=== PATIENT | female | born 1985 | race Caucasian/White ===

== ENCOUNTER 2024-09-01 09:05 | Emergency (ER) | payer BC ==
[2024-09-01] MEDS ORDERED: Phenytoin Extended Release 100 MG CAP ONE (09:48)
[2024-09-01 10:03] LABS: #Basophils 0.05 10x3/uL (0.0-0.2); #Monocytes 0.39 10x3/uL (0.0-1.1); #Neutrophils 3.62 10x3/uL (1.5-8.4); %Basophils 0.8 % (0.0-2.0); %Eosinophils 6.2 % (0.0-6.0); %Lymphocytes 30.6 % (18.0-47.0); %Monocytes 6.1 % (0.0-10.0); %Neutrophils 56.1 % (40.0-75.0); Hematocrit 32.1 % (34.9-44.5); Hemoglobin 10.4 g/dL (12.0-15.5); Mean Corpuscular HGB CONC 32.4 g/dL (32.0-36.0); Mean Corpuscular Hemoglobin 26.5 pg (27.0-33.0); Mean Corpuscular Volume 81.9 fL (81.6-98.3); Mean Platelet Volume 9.2 fL (7.4-10.4); Platelet Count 313 10x3/uL (150-450); RBC Distribution Width 14.6 % (11.5-14.5); Red Blood Cell (RBC) Count 3.92 10x6/uL (3.90-5.03); White Blood Cell (WBC) Count 6.4 10x3/uL (3.5-10.5)
[2024-09-01 10:44] LABS: ALT (SGPT) 19 U/L (8-55); AST (SGOT) 18 U/L (5-34); Albumin 3.5 g/dL (3.5-5.0); Alkaline Phosphatase 68 U/L (40-110); Anion Gap 13 mmol/L (10-20); BUN (Urea Nitrogen) 16 mg/dL (7.0-18.7); Bilirubin, Total 0.2 mg/dL (0.2-1.2); Calc. Creatinine Clearance 0 mL/min (70-130); Calcium 8.7 mg/dL (7.8-10.44); Carbon Dioxide 22 mmol/L (22-29); Chloride 107 mmol/L (98-107); Estimated GFR 80; Globulin 3.4 g/dL (2.4-3.5); Glucose 110 mg/dL (70-105); Potassium 4.2 mmol/L (3.5-5.1); Protein, Total 6.9 g/dL (6.0-8.3); Sodium 138 mmol/L (136-145)
== END 2024-09-01 11:01 | disposition home or self-care (01) ==
LOC: CSHERS 09:05
DX: N93.8 Other specified abnormal uterine and vaginal bleeding (principal); G40.909 Epilepsy, unspecified, not intractable, without status epilepticus
CPT/HCPCS: 36415; 80053; 84702; 85025; 99284